=== PATIENT | female | born 1970 | race African-American/Black ===

== ENCOUNTER 2020-10-30 06:45 | Day surgery (SDC) | payer OTHER ==
[2020-10-29 13:44] VITALS: BMI 24.5
[2020-10-30] MEDS ORDERED: Acetaminophen 500 MG TAB ONE (09:20)
[2020-10-30 10:31] VITALS: BP 136/81; TEMP 97.9
[2020-10-30] MEDS ORDERED: Iopamidol-M 200 41% 20 ML VIAL ONE (11:10)
== END 2020-10-30 10:00 | disposition home or self-care (01) ==
LOC: RAD 06:45 → EDBD 08:00 → RAD 10:00
PROVIDERS: ATTEND Neurological Surgery
PROC: B02B1ZZ Computerized Tomography (CT Scan) of Spinal Cord using Low Osmolar Contrast (ICD-10-PCS; principal; 2020-10-30)
DX: M48.062 Spinal stenosis, lumbar region with neurogenic claudication (principal); M51.36 Other intervertebral disc degeneration, lumbar region; I10 Essential (primary) hypertension; D64.9 Anemia, unspecified; J45.909 Unspecified asthma, uncomplicated; K21.9 Gastro-esophageal reflux disease without esophagitis; Z79.01 Long term (current) use of anticoagulants; Z79.899 Other long term (current) drug therapy; Z86.73 Personal history of transient ischemic attack (TIA), and cerebral infarction without residual deficits; Z88.0 Allergy status to penicillin; Z88.1 Allergy status to other antibiotic agents; Z88.5 Allergy status to narcotic agent; Z88.6 Allergy status to analgesic agent; Z88.8 Allergy status to other drugs, medicaments and biological substances; Z91.010 Allergy to peanuts; Z91.038 Other insect allergy status; Z91.040 Latex allergy status
CPT/HCPCS: 62304; 72120; 72132; Q9966

== ENCOUNTER 2020-10-31 15:52 | Emergency (ER) | payer OTHER ==
[2020-10-31] MEDS ORDERED: Ondansetron PF 4 MG/2 ML Vial ONE (17:16)
[2020-10-31] MEDS ORDERED: Metoclopramide 10 MG/10 ML UDCUP ONE (18:32)
[2020-10-31] MEDS ORDERED: Fentanyl 100 MCG/2 ML VIAL ONE (18:34)
[2020-10-31] MEDS ORDERED: diphenhydrAMINE 50 MG/ML VIAL ONE (18:35)
[2020-10-31] MEDS ORDERED: Metoclopramide HCl 10 MG/2 ML VIAL ONE (18:35)
[2020-10-31] MEDS ORDERED: Promethazine HCl 25 MG/ML VIAL ONE (18:40)
== END 2020-10-31 23:08 | disposition home or self-care (01) ==
LOC: ERS 15:52
DX: G97.1 Other reaction to spinal and lumbar puncture (principal); Z79.01 Long term (current) use of anticoagulants
CPT/HCPCS: 62272; 96365; 96374; 96375; J1200; J2405; J2550; J2765; J3010

== ENCOUNTER 2021-05-27 13:40 | Outpatient (CLI) | payer OTHER ==
[2021-05-27 15:06] LABS: Hemoglobin 11.5 g/dL (12.0-15.5); Mean Corpuscular HGB CONC 32.4 g/dL (32.0-36.0); Mean Corpuscular Hemoglobin 27.6 pg (27.0-33.0); Mean Corpuscular Volume 85.3 fl (81.6-98.3); Mean Platelet Volume 11.3 fl (7.4-10.4); Platelet Count 220 10x3/uL (150-450); RBC Distribution Width 16.3 % (11.5-14.5); Red Blood Cell (RBC) Count 4.16 10x6/uL (3.90-5.03); White Blood Cell (WBC) Count 4.7 10x3/uL (3.5-10.5)
[2021-05-27 15:23] LABS: PTT 28.4 sec (22.0-33.0); Prothrombin Time 11.5 sec (9.5-12.1)
[2021-05-28 00:41] LABS: SARS-CoV-2 PCR by NAA Not Detected (NotDetected)
== END 2021-05-27 13:41 | disposition home or self-care (01) ==
LOC: LABBT 13:40
PROVIDERS: ATTEND Neurological Surgery
DX: Z01.818 Encounter for other preprocedural examination (principal); M48.061 Spinal stenosis, lumbar region without neurogenic claudication; M48.07 Spinal stenosis, lumbosacral region; Z20.822 Contact with and (suspected) exposure to COVID-19
CPT/HCPCS: 85027; 85610; 85730; 93005; 93010; U0003; U0005

== ENCOUNTER 2021-05-30 09:44 | Day surgery (SDC) | payer OTHER ==
[2021-05-29 09:01] VITALS: BMI 25.3
[2021-05-30] MEDS ORDERED: Thrombin 5000 UNITS/5 ML VIAL ONE (10:06)
[2021-05-30] MEDS ORDERED: Bupivacaine PF 0.5% 30 ML VIAL ONE (10:06)
[2021-05-30] MEDS ORDERED: EPINEPHrine 1 MG/ML AMP ONE (10:06)
[2021-05-30] MEDS ORDERED: Neomycin-Polymyxin 1 ML AMP ONE (10:06)
[2021-05-30] MEDS ORDERED: ceFAZolin 2 GM/DEX 5% 100 ML BAG ONE (10:35)
[2021-05-30] MEDS ORDERED: Midazolam HCl 2 mg/2 ml Vial ONE (12:21)
[2021-05-30] MEDS ORDERED: Fentanyl 100 MCG/2 ML VIAL ONE ×2 (13:02→16:17)
[2021-05-30] MEDS ORDERED: HYDROmorphone 0.5 MG/0.5 ML SYRINGE ONE ×2 (13:02→15:20)
[2021-05-30] MEDS ORDERED: Lidocaine 2% Jelly 5 ML TUBE ONE (13:03)
[2021-05-30] MEDS ORDERED: Vancomycin HCl 500 MG VIAL ONE (13:22)
[2021-05-30] MEDS ORDERED: Vancomycin 1 GM/200 ML BAG ONE (13:22)
[2021-05-30] MEDS ORDERED: Rocuronium Bromide 10 MG/ML (10ML VIAL) ONE (13:32)
[2021-05-30] MEDS ORDERED: Glycopyrrolate 0.2 MG/ML 5 ML SYRINGE ONE (13:32)
[2021-05-30] MEDS ORDERED: PROPOFOL 200 MG/20 ML VIAL ONE (13:32)
[2021-05-30] MEDS ORDERED: Ondansetron PF 4 MG/2 ML Vial ONE (13:32)
[2021-05-30] MEDS ORDERED: Lidocaine 1% PF 5 ML VIAL ONE (13:32)
[2021-05-30] MEDS ORDERED: ePHEDrine 50 MG/ML VIAL ONE (13:32)
[2021-05-30] MEDS ORDERED: PHENYLEPHRINE-NS 100 MCG/ML 10 ML SYRINGE ONE (13:32)
[2021-05-30] MEDS ORDERED: Dexamethasone 20 MG/5 ML VIAL ONE (13:32)
[2021-05-30] MEDS ORDERED: SUGAMMADEX SODIUM 200 MG/2 ML VIAL ONE (15:33)
[2021-05-30] MEDS ORDERED: Promethazine HCl 25 MG/ML VIAL IVPB PRN (15:50)
[2021-05-30] MEDS ORDERED: HYDROmorphone 2 MG/ML VIAL SLOW IVP PRN (15:50)
[2021-05-30] MEDS ORDERED: Promethazine HCl 25 MG/ML VIAL IM PRN (15:50)
[2021-05-30] MEDS ORDERED: Ondansetron HCl/PF 4 MG/2 ML Vial IVP PRN (15:50)
== END 2021-05-30 18:10 | disposition home or self-care (01) ==
LOC: SDC 09:44
PROVIDERS: ATTEND Neurological Surgery
PROC: 01NB0ZZ Release Lumbar Nerve, Open Approach (ICD-10-PCS; principal; 2021-05-30)
DX: M48.062 Spinal stenosis, lumbar region with neurogenic claudication (principal); I10 Essential (primary) hypertension; J45.909 Unspecified asthma, uncomplicated; G43.909 Migraine, unspecified, not intractable, without status migrainosus; Z86.73 Personal history of transient ischemic attack (TIA), and cerebral infarction without residual deficits; Z88.0 Allergy status to penicillin; Z88.1 Allergy status to other antibiotic agents; Z88.5 Allergy status to narcotic agent; Z88.6 Allergy status to analgesic agent; Z88.8 Allergy status to other drugs, medicaments and biological substances; Z91.040 Latex allergy status; Z91.010 Allergy to peanuts; Z91.038 Other insect allergy status; Z79.01 Long term (current) use of anticoagulants; Z79.899 Other long term (current) drug therapy
CPT/HCPCS: 76000; J0171; J1100; J1170; J2250; J2405; J2704; J3010; J3370; J3490; S0020